=== PATIENT | female | born 1970 | race Caucasian/White ===

== ENCOUNTER 2016-05-17 09:02 | Emergency (ER) | payer OTHER ==
--- NOTE | 2016-05-17 09:37 | ED CLINICAL REPORT ---
Clinical Report - Physicians/Mid Levels [facility] [address] [place] [address] 05/17/2016 9:02 Patient: CORINE GONCALVES Time Seen: 0913; initial patient contact. Arrived- By private vehicle. Historian- patient. HISTORY OF PRESENT ILLNESS Chief Complaint: DENTAL PAIN. This started about 3 days ago and is still present. It was gradual in onset. Pain described as moderate. No sore throat, mouth sores or nasal discharge or congestion. No swollen jaw or face, jaw pain or facial pain. She has had toothache and ear pain. Similar symptoms previously: None. Recent medical care: Not recently seen/assessed. REVIEW OF SYSTEMS No fever, cough or sore throat. She has had chills and sinus pain. All systems otherwise negative, except as recorded above. PAST HISTORY Costochondritis. Sinusitis. Ovarian Cyst. Substance Abuse. Urinary Calculi. Vaginal Bleeding. Pelvic Pain. Pharyngitis. Pneumonia. Lifestyle / Substance Problems. Lung nodules. Emphysema. Blood clots. Immunizations. Raynaud's Phenomenon. COPD - Chronic Obstructive Pulmonary Disease. SURGERIES: Ear surgery. Occipital Nerve surgery. Medications: None. Allergies: Penicillins. Sulfa Antibiotics. Vicodin. SOCIAL HISTORY Current every day smoker. Occasional alcohol use. History of drug use: marijuana. ADDITIONAL NOTES The nursing notes have been reviewed. PHYSICAL EXAM Vital Signs: 05/17/2016 09:10 BP: 132/75. HR: 85. RR: 16. O2 saturation: 100%. Temp: 98.2 F. Have been reviewed as normal. Appearance: Alert. No acute distress. Head: Tenderness present to percussion/palpation of the sinuses: moderate right maxillary tenderness. No facial erythema. No mandibular swelling or maxillary swelling. ENT: Ears normal. Nose normal. Mild localized gingival erythema. No gingival bleeding or exudate. No trismus present. Neck: No adenopathy. CVS: Normal heart rate and rhythm. Heart sounds normal. Respiratory: No respiratory distress. Breath sounds normal. Skin: Normal skin color. No rash. Neuro: Oriented X 3. PROGRESS AND PROCEDURES Disposition: Discharged home in good condition. Condition: good. CLINICAL IMPRESSION Alveolar dental abscess. No sinus tract or Aaron's angina. INSTRUCTIONS Your Current Medications: CONTINUE TAKING THE FOLLOWING MEDICATIONS: None*. Prescription Medications: Cleocin 300 mg: take 1 capsule orally every 6 hours for 7 days. No refill. Substitution is permissible. Diclofenac 50 mg tablets: take 1 tablet orally every 6 hours as needed for pain or stiffness. Dispense thirty (30). No refill. Follow-up: Screening today revealed the patient's blood pressure to be in the pre-hypertensive range. The patient should follow up with a primary care provider for blood pressure management. Follow-up with: [facility], , , , , , ; [facility], , , [address], , [place], [address] Follow up in about two days. Call for an appointment. (Electronically signed by Jaxon Mckeon Dr. 05/17/2016 9:45)
--- NOTE | 2016-05-17 09:37 | ED NURSING NOTES ---
Clinical Report - Nurses [facility] [address] [place] [address] 05/17/2016 9:02 Patient: CORINE GONCALVES TRIAGE Triage time 09:07. Acuity: LEVEL 4. Chief Complaint: RIGHT EAR PAIN. Alert. No acute distress. SEPSIS SCREEN: Sepsis Screen. Infection suspected/documented. Temperature not greater than 38.3 degrees C (101 degrees F). Heart rate not greater than 90. Respiratory rate not greater than 20. ANDRY COMA SCORE: [place] Coma Scale: 15- eyes open spontaneously (4); best verbal response- oriented x 4 (5); best motor response- obeys commands (6). --09:14 Celeste Ricketts R.N. 09:10 05/17/16. BP: 132/75. HR: 85. RR: 16. O2 saturation: 100% on room air. Temp: 98.2 F (oral). Pain level now 10. --09:14 Celeste Ricketts R.N. Weight: 63 kg stated. Height/Length: 60 inches Per Patient. BMI: 27.1. --09:11 Celeste Ricketts R.N. Medications None. --09:13 Celeste Ricketts R.N. Allergies Penicillins. Sulfa Antibiotics. Vicodin. --09:13 Celeste Ricketts R.N. Medication/allergy information source: the patient. --09:14 Celeste Ricketts R.N. History Arrived by private vehicle. Historian: patient. Accompanied by family. Primary physician (no pcp). ( right ear pain x 3 days, noticed some excoriation to the roof of her mouth this morning and began having some mouth pain today.). Onset. (3 days ago). 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 PAST MEDICAL HX: Last normal menstrual period was 2 weeks ago. Denies current . SOCIAL HX: Heavy tobacco smoker (cigarette)- less than 1 pack per day. Occasional alcohol use. History of drug use: marijuana. ABUSE ASSESSMENT: Abuse assessment: The patient was asked "Do you feel safe in your home?". No report of abuse. FALL RISK ASSESSMENT: Fall risk assessment completed. No fall risk identified. NUTRITIONAL RISK ASSESSMENT: The nutritional risk assessment revealed no deficiencies. FUNCTIONAL ASSESSMENT: Functional assessment: no impairments noted. LEARNING NEEDS ASSESSMENT: The learning needs assessment revealed no barriers. SKIN INTEGRITY ASSESSMENT: Skin integrity risk assessment completed. No skin integrity risk identified. --09:14 Celeste Ricketts R.N. PROBLEMS: Costochondritis. Sinusitis. Ovarian Cyst. Substance Abuse. Urinary Calculi. Vaginal Bleeding. Pelvic Pain. Pharyngitis. Pneumonia. Lifestyle / Substance Problems. Lung nodules. Emphysema. Blood clots. Immunizations. Raynaud's Phenomenon. COPD - Chronic Obstructive Pulmonary Disease. --09:13 Celeste Ricketts R.N. ADDITIONAL SURGERIES: Ear surgery. Occipital Nerve surgery. --09:13 Celeste Ricketts R.N. Interventions ID band on patient. To treatment room. --09:14 Celeste Ricketts R.N. PHYSICAL ASSESSMENT 09:14 05/17/16. Ambulatory to room. GENERAL / NEURO / PSYCH: Alert. Appears in no acute distress. HEENT: No facial asymmetry noted. RESPIRATORY: Respirations not labored. SKIN: Skin is warm and dry. --09:14 Celeste Ricketts R.N. NURSING PROGRESS NOTES 09:15 05/17/16. The plan of care for this patient has been created. Head of bed elevated. Call light placed in reach. Bed placed in lowest position. Brakes of bed on. Patient ready for evaluation- chart flagged. --09:15 Celeste Ricketts R.N. DISPOSITION / DISCHARGE 11:04 05/17/16. Departure time: 0944. Condition at departure: unchanged and stable. No learning barriers present. Discharge instructions provided and reviewed with the patient. Reviewed medication(s) side effects, precautions, dosing and course information. Prescription(s) given to the patient. Patient verbalized understanding. Written instructions provided in Azeri. The patient was discharged by the physician. She was discharged home. She left the Emergency Department ambulatory and via private vehicle. Patient driving. --11:04 Celeste Ricketts R.N. Locked/Released at 05/17/2016 11:05 by Celeste Ricketts R.N.
--- NOTE | 2016-05-17 09:37 | ED NURSING NOTES ---
Clinical Report - Nurses [facility] [address] [place] [address] 05/17/2016 9:02 Patient: CORINE GONCALVES TRIAGE Triage time 09:07. Acuity: LEVEL 4. Chief Complaint: RIGHT EAR PAIN. Alert. No acute distress. SEPSIS SCREEN: Sepsis Screen. Infection suspected/documented. Temperature not greater than 38.3 degrees C (101 degrees F). Heart rate not greater than 90. Respiratory rate not greater than 20. ANDRY COMA SCORE: [place] Coma Scale: 15- eyes open spontaneously (4); best verbal response- oriented x 4 (5); best motor response- obeys commands (6). --09:14 Celeste Ricketts R.N. 09:10 05/17/16. BP: 132/75. HR: 85. RR: 16. O2 saturation: 100% on room air. Temp: 98.2 F (oral). Pain level now 10. --09:14 Celeste Ricketts R.N. Weight: 63 kg stated. Height/Length: 60 inches Per Patient. BMI: 27.1. --09:11 Celeste Ricketts R.N. Medications None. --09:13 Celeste Ricketts R.N. Allergies Penicillins. Sulfa Antibiotics. Vicodin. --09:13 Celeste Ricketts R.N. Medication/allergy information source: the patient. --09:14 Celeste Ricketts R.N. History Arrived by private vehicle. Historian: patient. Accompanied by family. Primary physician (no pcp). ( right ear pain x 3 days, noticed some excoriation to the roof of her mouth this morning and began having some mouth pain today.). Onset. (3 days ago). 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 PAST MEDICAL HX: Last normal menstrual period was 2 weeks ago. Denies current . SOCIAL HX: Heavy tobacco smoker (cigarette)- less than 1 pack per day. Occasional alcohol use. History of drug use: marijuana. ABUSE ASSESSMENT: Abuse assessment: The patient was asked "Do you feel safe in your home?". No report of abuse. FALL RISK ASSESSMENT: Fall risk assessment completed. No fall risk identified. NUTRITIONAL RISK ASSESSMENT: The nutritional risk assessment revealed no deficiencies. FUNCTIONAL ASSESSMENT: Functional assessment: no impairments noted. LEARNING NEEDS ASSESSMENT: The learning needs assessment revealed no barriers. SKIN INTEGRITY ASSESSMENT: Skin integrity risk assessment completed. No skin integrity risk identified. --09:14 Celeste Ricketts R.N. PROBLEMS: Costochondritis. Sinusitis. Ovarian Cyst. Substance Abuse. Urinary Calculi. Vaginal Bleeding. Pelvic Pain. Pharyngitis. Pneumonia. Lifestyle / Substance Problems. Lung nodules. Emphysema. Blood clots. Immunizations. Raynaud's Phenomenon. COPD - Chronic Obstructive Pulmonary Disease. --09:13 Celeste Ricketts R.N. ADDITIONAL SURGERIES: Ear surgery. Occipital Nerve surgery. --09:13 Celeste Ricketts R.N. Interventions ID band on patient. To treatment room. --09:14 Celeste Ricketts R.N. PHYSICAL ASSESSMENT 09:14 05/17/16. Ambulatory to room. GENERAL / NEURO / PSYCH: Alert. Appears in no acute distress. HEENT: No facial asymmetry noted. RESPIRATORY: Respirations not labored. SKIN: Skin is warm and dry. --09:14 Celeste Ricketts R.N. NURSING PROGRESS NOTES 09:15 05/17/16. The plan of care for this patient has been created. Head of bed elevated. Call light placed in reach. Bed placed in lowest position. Brakes of bed on. Patient ready for evaluation- chart flagged. --09:15 Celeste Ricketts R.N. DISPOSITION / DISCHARGE 11:04 05/17/16. Departure time: 0944. Condition at departure: unchanged and stable. No learning barriers present. Discharge instructions provided and reviewed with the patient. Reviewed medication(s) side effects, precautions, dosing and course information. Prescription(s) given to the patient. Patient verbalized understanding. Written instructions provided in Yoruba. The patient was discharged by the physician. She was discharged home. She left the Emergency Department ambulatory and via private vehicle. Patient driving. --11:04 Celeste Ricketts R.N. Locked/Released at 05/17/2016 11:05 by Celeste Ricketts R.N.
--- NOTE | 2016-05-17 09:37 | ED CLINICAL REPORT ---
Clinical Report - Physicians/Mid Levels [facility] [address] [place] [address] 05/17/2016 9:02 Patient: CORINE GONCALVES Time Seen: 0913; initial patient contact. Arrived- By private vehicle. Historian- patient. HISTORY OF PRESENT ILLNESS Chief Complaint: DENTAL PAIN. This started about 3 days ago and is still present. It was gradual in onset. Pain described as moderate. No sore throat, mouth sores or nasal discharge or congestion. No swollen jaw or face, jaw pain or facial pain. She has had toothache and ear pain. Similar symptoms previously: None. Recent medical care: Not recently seen/assessed. REVIEW OF SYSTEMS No fever, cough or sore throat. She has had chills and sinus pain. All systems otherwise negative, except as recorded above. PAST HISTORY Costochondritis. Sinusitis. Ovarian Cyst. Substance Abuse. Urinary Calculi. Vaginal Bleeding. Pelvic Pain. Pharyngitis. Pneumonia. Lifestyle / Substance Problems. Lung nodules. Emphysema. Blood clots. Immunizations. Raynaud's Phenomenon. COPD - Chronic Obstructive Pulmonary Disease. SURGERIES: Ear surgery. Occipital Nerve surgery. Medications: None. Allergies: Penicillins. Sulfa Antibiotics. Vicodin. SOCIAL HISTORY Current every day smoker. Occasional alcohol use. History of drug use: marijuana. ADDITIONAL NOTES The nursing notes have been reviewed. PHYSICAL EXAM Vital Signs: 05/17/2016 09:10 BP: 132/75. HR: 85. RR: 16. O2 saturation: 100%. Temp: 98.2 F. Have been reviewed as normal. Appearance: Alert. No acute distress. Head: Tenderness present to percussion/palpation of the sinuses: moderate right maxillary tenderness. No facial erythema. No mandibular swelling or maxillary swelling. ENT: Ears normal. Nose normal. Mild localized gingival erythema. No gingival bleeding or exudate. No trismus present. Neck: No adenopathy. CVS: Normal heart rate and rhythm. Heart sounds normal. Respiratory: No respiratory distress. Breath sounds normal. Skin: Normal skin color. No rash. Neuro: Oriented X 3. PROGRESS AND PROCEDURES Disposition: Discharged home in good condition. Condition: good. CLINICAL IMPRESSION Alveolar dental abscess. No sinus tract or Aaron's angina. INSTRUCTIONS Your Current Medications: CONTINUE TAKING THE FOLLOWING MEDICATIONS: None*. Prescription Medications: Cleocin 300 mg: take 1 capsule orally every 6 hours for 7 days. No refill. Substitution is permissible. Diclofenac 50 mg tablets: take 1 tablet orally every 6 hours as needed for pain or stiffness. Dispense thirty (30). No refill. Follow-up: Screening today revealed the patient's blood pressure to be in the pre-hypertensive range. The patient should follow up with a primary care provider for blood pressure management. Follow-up with: [facility], , , , , , ; [facility], , , [address], , [place], [id number] Follow up in about two days. Call for an appointment. (Electronically signed by Jaxon Mckeon Dr. 05/17/2016 9:45)
--- NOTE | 2016-05-17 11:05 | ED DISCHARGE INSTRUCTIONS ---
Patient: CORINE GONCALVES General Instructions [facility] VisitID: [id number] [address] [place] [address] 46y, F Registration Date/Time: 05/17/2016 Alveolar dental abscess. No sinus tract or Aaron's angina. INSTRUCTIONS Your Current Medications: CONTINUE TAKING THE FOLLOWING MEDICATIONS: None*. Prescription Medications: Cleocin 300 mg: take 1 capsule orally every 6 hours for 7 days. No refill. Substitution is permissible. Diclofenac 50 mg tablets: take 1 tablet orally every 6 hours as needed for pain or stiffness. Dispense thirty (30). No refill. Follow-up: Screening today revealed the patient's blood pressure to be in the pre-hypertensive range. The patient should follow up with a primary care provider for blood pressure management. Follow-up with: [facility], , , , , , ; [facility], , , [address], [place], [address] Follow up in about two days. Call for an appointment. ADDITIONAL INFORMATION Dental Abscess A dental abscess is an infection of the tooth socket. It often starts with a crack or cavity in the tooth. A pocket of pus forms between the tooth and the bone. The infection causes pain and swelling of the gum, cheek or jaw. The pain is often made worse by drinking hot or cold fluids, or biting on hard foods. Pain may be felt in the facial sinus or in the ear. A severe infection can interfere with swallowing and breathing. In the emergency department or clinic, you will be started on an antibiotic. However, final treatment requires drainage of the pus. This can be done by removing the tooth or performing a root canal. A root canal is done by an oral surgeon and involves drilling an opening in the tooth to drain the pus. After the infection has healed, a crown is placed over the tooth. Home care The following guidelines will help you care for your abscess at home: Avoid hot and cold foods and liquids since your tooth may be sensitive to temperature changes. If your tooth is chipped or cracked, or if there is a large open cavity, applyoil of cloves(available liur-kif-zsmihnq in drug stores) directly to the tooth to reduce pain. Some pharmacies carry an aify-yud-dfnymuh "toothache kit". This contains oil of cloves and a paste, which can be applied over the exposed tooth to decrease sensitivity. Apply an ice pack (ice cubes in a plastic bag, wrapped in a towel) over the injured area for 20 minutes every 12 hours the first day for pain relief. Continue this 34 times a day until the pain and swelling goes away. You may use acetaminophen or ibuprofen to control pain, unless another medicine was prescribed. If you have chronic liver or kidney disease or ever had a stomach ulcer or GI bleeding, talk with your doctor before using these medicines. An antibiotic will be prescribed. Take it as directed until completed, even if you are feeling better sooner. Follow-up care Follow up as directed with a dentist or oral surgeon. Even though your pain may improve with the treatment given today, only a dentist or oral surgeon can provide full treatment for this problem. When to seek medical care Get prompt medical attention or contact your doctor if any of the following occur: Your face or eyelid becomes swollen or red Pain worsens or spreads to the neck Fever over 100.4F (38.0C) Unusual drowsiness; headache or stiff neck; weakness, or fainting Pus drains from the gum or tooth Difficulty talking, swallowing or breathing Unable to open your mouth wide Clindamycin Hydrochloride Oral capsule What is this medicine? CLINDAMYCIN (KLIN da MYMadi sin) is a lincosamide antibiotic. It is used to treat certain kinds of bacterial infections. It will not work for colds, flu, or other viral infections. How should I use this medicine? Take this medicine by mouth with a full glass of water. Follow the directions on the prescription label. You can take this medicine with food or on an empty stomach. If the medicine upsets your stomach, take it with food. Take your medicine at regular intervals. Do not take your medicine more often than directed. Take all of your medicine as directed even if you think your are better. Do not skip doses or stop your medicine early. Talk to your groover and turner regarding the use of this medicine in children. Special care may be needed. What side effects may I notice from receiving this medicine? Side effects that you should report to your doctor or health medical care administrator as soon as possible: allergic reactions like skin rash, itching or hives, swelling of the face, lips, or tongue dark urine pain on swallowing redness, blistering, peeling or loosening of the skin, including inside the mouth unusual bleeding or bruising unusually weak or tired yellowing of eyes or skin Side effects that usually do not require medical attention (report to your doctor or health medical care administrator if they continue or are bothersome): diarrhea itching in the rectal or genital area joint pain nausea, vomiting stomach pain What may interact with this medicine? chloramphenicol erythromycin kaolin products What if I miss a dose? If you miss a dose, take it as soon as you can. If it is almost time for your next dose, take only that dose. Do not take double or extra doses. Where should I keep my medicine? Keep out of the reach of children. Store at room temperature between 20 and 25 degrees C (68 and 77 degrees F). Throw away any unused medicine after the expiration date. What should I tell my health care provider before I take this medicine? They need to know if you have any of these conditions: kidney disease liver disease stomach problems like colitis an unusual or allergic reaction to clindamycin, lincomycin, or other medicines, foods, dyes like tartrazine or preservatives or trying to get breast-feeding What should I watch for while using this medicine? Tell your doctor or healthcare professional if your symptoms do not start to get better or if they get worse. Do not treat diarrhea with over the counter products. Contact your doctor if you have diarrhea that lasts more than 2 days or if it is severe and watery. You have been given the following additional information: Tooth Abscess Clindamycin Hydrochloride Oral capsule (Electronically signed by Jaxon Mckeon Dr. 05/17/2016 9:45)
--- NOTE | 2016-05-17 11:05 | ED MAR SUMMARY ---
..... Medication Administration Record [facility] [address], [place] [id number] Patient: CORINE GONCALVES Visit ID: [id number] 46y, F Weight: 63.0 kg Height/Length: 60 in BMI: 27.1 ALLERGIES: Penicillins, Sulfa Antibiotics, Vicodin
--- NOTE | 2016-05-17 11:05 | ED MED RECONCILIATION SUMMARY ---
Patient: CORINE GONCALVES Medication Reconciliation Report [facility] VisitID: [id number] [address] [place] [address] 46y, F Registration Date/Time: 05/17/2016 Weight: 63.0 kg Height/Length: 60 in. BMI: 27.1 ALLERGIES: Penicillins, Sulfa Antibiotics, Vicodin The patient's Home Medications are listed below: NONE. The source(s) of the original Home Medication information: patient The following Medications were given to the patient in the Emergency Department: None. The following Medications were prescribed to the patient: Cleocin 300 mg: take 1 capsule orally every 6 hours for 7 days. No refill. Substitution is permissible. -- Jaxon Mckeon Dr. Diclofenac 50 mg tablets: take 1 tablet orally every 6 hours as needed for pain or stiffness. Dispense thirty (30). No refill. -- Jaxon Mckeon Dr.
--- NOTE | 2016-05-17 11:05 | ED DISCHARGE INSTRUCTIONS ---
Patient: CORINE GONCALVES General Instructions [facility] VisitID: [id number] [address] [place] [address] 46y, F Registration Date/Time: 05/17/2016 Alveolar dental abscess. No sinus tract or Aaron's angina. INSTRUCTIONS Your Current Medications: CONTINUE TAKING THE FOLLOWING MEDICATIONS: None*. Prescription Medications: Cleocin 300 mg: take 1 capsule orally every 6 hours for 7 days. No refill. Substitution is permissible. Diclofenac 50 mg tablets: take 1 tablet orally every 6 hours as needed for pain or stiffness. Dispense thirty (30). No refill. Follow-up: Screening today revealed the patient's blood pressure to be in the pre-hypertensive range. The patient should follow up with a primary care provider for blood pressure management. Follow-up with: [facility], , , , , , ; [facility], , , [address], [place], [address] Follow up in about two days. Call for an appointment. ADDITIONAL INFORMATION Dental Abscess A dental abscess is an infection of the tooth socket. It often starts with a crack or cavity in the tooth. A pocket of pus forms between the tooth and the bone. The infection causes pain and swelling of the gum, cheek or jaw. The pain is often made worse by drinking hot or cold fluids, or biting on hard foods. Pain may be felt in the facial sinus or in the ear. A severe infection can interfere with swallowing and breathing. In the emergency department or clinic, you will be started on an antibiotic. However, final treatment requires drainage of the pus. This can be done by removing the tooth or performing a root canal. A root canal is done by an oral surgeon and involves drilling an opening in the tooth to drain the pus. After the infection has healed, a crown is placed over the tooth. Home care The following guidelines will help you care for your abscess at home: Avoid hot and cold foods and liquids since your tooth may be sensitive to temperature changes. If your tooth is chipped or cracked, or if there is a large open cavity, applyoil of cloves(available pibd-efl-fnqzsvs in drug stores) directly to the tooth to reduce pain. Some pharmacies carry an jptc-vid-mnszicy "toothache kit". This contains oil of cloves and a paste, which can be applied over the exposed tooth to decrease sensitivity. Apply an ice pack (ice cubes in a plastic bag, wrapped in a towel) over the injured area for 20 minutes every 12 hours the first day for pain relief. Continue this 34 times a day until the pain and swelling goes away. You may use acetaminophen or ibuprofen to control pain, unless another medicine was prescribed. If you have chronic liver or kidney disease or ever had a stomach ulcer or GI bleeding, talk with your doctor before using these medicines. An antibiotic will be prescribed. Take it as directed until completed, even if you are feeling better sooner. Follow-up care Follow up as directed with a dentist or oral surgeon. Even though your pain may improve with the treatment given today, only a dentist or oral surgeon can provide full treatment for this problem. When to seek medical care Get prompt medical attention or contact your doctor if any of the following occur: Your face or eyelid becomes swollen or red Pain worsens or spreads to the neck Fever over 100.4F (38.0C) Unusual drowsiness; headache or stiff neck; weakness, or fainting Pus drains from the gum or tooth Difficulty talking, swallowing or breathing Unable to open your mouth wide Clindamycin Hydrochloride Oral capsule What is this medicine? CLINDAMYCIN (KLIN da MYMadi sin) is a lincosamide antibiotic. It is used to treat certain kinds of bacterial infections. It will not work for colds, flu, or other viral infections. How should I use this medicine? Take this medicine by mouth with a full glass of water. Follow the directions on the prescription label. You can take this medicine with food or on an empty stomach. If the medicine upsets your stomach, take it with food. Take your medicine at regular intervals. Do not take your medicine more often than directed. Take all of your medicine as directed even if you think your are better. Do not skip doses or stop your medicine early. Talk to your toilet attendant regarding the use of this medicine in children. Special care may be needed. What side effects may I notice from receiving this medicine? Side effects that you should report to your doctor or health manager critical care unit as soon as possible: allergic reactions like skin rash, itching or hives, swelling of the face, lips, or tongue dark urine pain on swallowing redness, blistering, peeling or loosening of the skin, including inside the mouth unusual bleeding or bruising unusually weak or tired yellowing of eyes or skin Side effects that usually do not require medical attention (report to your doctor or health manager critical care unit if they continue or are bothersome): diarrhea itching in the rectal or genital area joint pain nausea, vomiting stomach pain What may interact with this medicine? chloramphenicol erythromycin kaolin products What if I miss a dose? If you miss a dose, take it as soon as you can. If it is almost time for your next dose, take only that dose. Do not take double or extra doses. Where should I keep my medicine? Keep out of the reach of children. Store at room temperature between 20 and 25 degrees C (68 and 77 degrees F). Throw away any unused medicine after the expiration date. What should I tell my health care provider before I take this medicine? They need to know if you have any of these conditions: kidney disease liver disease stomach problems like colitis an unusual or allergic reaction to clindamycin, lincomycin, or other medicines, foods, dyes like tartrazine or preservatives or trying to get breast-feeding What should I watch for while using this medicine? Tell your doctor or healthcare professional if your symptoms do not start to get better or if they get worse. Do not treat diarrhea with over the counter products. Contact your doctor if you have diarrhea that lasts more than 2 days or if it is severe and watery. You have been given the following additional information: Tooth Abscess Clindamycin Hydrochloride Oral capsule (Electronically signed by Jaxon Mckeon Dr. 05/17/2016 9:45)
--- NOTE | 2016-05-17 11:05 | ED MAR SUMMARY ---
..... Medication Administration Record [facility] [address], [place] [id number] Patient: CORINE GONCALVES Visit ID: [id number] 46y, F Weight: 63.0 kg Height/Length: 60 in BMI: 27.1 ALLERGIES: Penicillins, Sulfa Antibiotics, Vicodin
--- NOTE | 2016-05-17 11:05 | ED MED RECONCILIATION SUMMARY ---
Patient: CORINE GONCALVES Medication Reconciliation Report [facility] VisitID: [id number] [address] [place] [address] 46y, F Registration Date/Time: 05/17/2016 Weight: 63.0 kg Height/Length: 60 in. BMI: 27.1 ALLERGIES: Penicillins, Sulfa Antibiotics, Vicodin The patient's Home Medications are listed below: NONE. The source(s) of the original Home Medication information: patient The following Medications were given to the patient in the Emergency Department: None. The following Medications were prescribed to the patient: Cleocin 300 mg: take 1 capsule orally every 6 hours for 7 days. No refill. Substitution is permissible. -- Jaxon Mckeon Dr. Diclofenac 50 mg tablets: take 1 tablet orally every 6 hours as needed for pain or stiffness. Dispense thirty (30). No refill. -- Jaxon Mckeon Dr.
== END 2016-05-17 09:44 | disposition home or self-care (01) ==
LOC: ED SRH 09:02
DX: K04.7 Periapical abscess without sinus (principal); F17.210 Nicotine dependence, cigarettes, uncomplicated; R50.9 Fever, unspecified; Z88.0 Allergy status to penicillin; Z88.2 Allergy status to sulfonamides; Z88.5 Allergy status to narcotic agent